=== PATIENT | female | born 1950 | race Hispanic/Latino ===

== ENCOUNTER → 2018-02-06 | Outpatient (CLI) | payer OTHER, MEDICARE ==
[~2018-02-06] MED LIST: ALPR1TAB2 PO; ASPI-555 PO; LAMO200T7 PO; LOSA50TA37 PO
[2018-02-06 11:58] LABS: CREATININE 0.9 mg/dL (0.5-1.5)
== END | disposition home or self-care (01) ==
LOC: LAB 10:00
PROVIDERS: ATTEND Psychiatry & Neurology Neurology
DX: R56.9 Unspecified convulsions (principal)
CPT/HCPCS: 36415; 82565; 84520

== ENCOUNTER → 2018-02-10 | Outpatient (CLI) | payer OTHER, MEDICARE ==
[~2018-02-10] MED LIST changes: +GADOBENATE DIMEGLUMINE 10 ML IV ONE
== END | disposition home or self-care (01) ==
LOC: RAH 09:47
PROVIDERS: ATTEND Psychiatry & Neurology Neurology
DX: R56.9 Unspecified convulsions (principal)
CPT/HCPCS: 70553; A9577

== ENCOUNTER 2018-09-17 18:30 | Emergency (ER) | payer OTHER, MEDICARE ==
[~2018-09-17 18:30] MED LIST changes: -GADOBENATE DIMEGLUMINE 10 ML IV ONE; +LOSA50TA25 PO; -LOSA50TA37 PO
[2018-09-17 18:53] LABS: BASOPHILS % (AUTO) 0.3 % (0.0-5.0); HEMATOCRIT 43.4 % (36-48); MEAN CORPUSCULAR HEMOGLOBIN 28.9 pg (27.0-33.0); MEAN CORPUSCULAR HGB CONC 33.3 g/dL (32.0-36.0); MONOCYTES % (AUTO) 2.7 % (3.0-13.0); NUCLEATED RED BLOOD CELLS 0.2 % (0.0-0.19); PLATELET COUNT (AUTO) 128 K/uL (130-400); RED BLOOD CELL COUNT(AUTO) 4.99 MIL/uL (4.00-5.50); RED CELL DISTRIBUTION WIDTH 14.2 % (11.0-15.5); WHITE BLOOD COUNT (AUTO) 4.3 K/uL (4.8-10.8)
[2018-09-17 19:06] LABS: CREATININE 0.9 mg/dL (0.5-1.5); POTASSIUM 3.6 mmol/L (3.5-5.1)
[2018-09-17 19:11] LABS: ALBUMIN 4.1 g/dL (3.5-5.0); BILIRUBIN,TOTAL 1.4 mg/dL (0.2-1.0); TOTAL PROTEIN, SERUM 8.3 g/dL (6.0-8.3)
[2018-09-17] MEDS ORDERED: SODIUM CHLORIDE 0.9% 1000ML 1,000 ML IV ONE (19:23)
[2018-09-17] MEDS ORDERED: ONDANSETRON HCL 4 MG/2 ML VIAL ONE (20:17)
[2018-09-17 20:38] LABS: APPEARANCE,URINE Clear (CLEAR); BILIRUBIN,URINE Negative (NEGATIVE); COLOR,URINE Dark Yellow (YELLOW); GLUCOSE, URINE (UA) Negative (NEGATIVE); KETONES,URINE Trace mg/dL (NEGATIVE); LEUKOCYTE ESTERASE ,URINE Small (NEGATIVE); NITRATE,URINE Negative (NEGATIVE); OCCULT BLOOD,URINE Negative (NEGATIVE); PROTEIN,URINE Trace (NEGATIVE)
[2018-09-17 20:50] LABS: BACTERIA,URINE Few /HPF (None Seen); RBC,URINE 0-1 /HPF (0-1)
[2018-09-17 20:52] LABS: MUCUS,URINE Few LPF (None Seen); SQUAMOUS EPITHELIAL CELL,UR Few /HPF (0-2)
[2018-09-17] MEDS ORDERED: CEFTRIAXONE SODIUM 1 GM ONE (22:03)
[2018-09-17] MEDS ORDERED: TRAMADOL HCL 50 MG TABLET ONE (23:36)
== END 2018-09-17 23:51 | disposition home or self-care (01) ==
LOC: EDH 18:30
DX: N30.00 Acute cystitis without hematuria (principal); E86.9 Volume depletion, unspecified; I10 Essential (primary) hypertension; Z88.6 Allergy status to analgesic agent; Z88.1 Allergy status to other antibiotic agents; Z90.710 Acquired absence of both cervix and uterus; Z90.49 Acquired absence of other specified parts of digestive tract; Z87.442 Personal history of urinary calculi
CPT/HCPCS: 36415; 80053; 81001; 83690; 85025; 87804 ×2; 96361; 96374; 96375; 99283; J0696; J2405; J7030

== ENCOUNTER 2018-10-24 22:35 | Emergency (ER) | payer OTHER, MEDICARE ==
[~2018-10-24 22:35] MED LIST changes: -LOSA50TA25 PO; +LOSA50TA64 PO
[2018-10-24] MEDS ORDERED: ONDANSETRON HCL 4 MG/2 ML VIAL ONE (23:09)
[2018-10-24] MEDS ORDERED: SODIUM CHLORIDE 0.9% 1000ML 1,000 ML IV ONE (23:09)
[2018-10-24 23:15] LABS: BASOPHILS % (AUTO) 0.6 % (0.0-5.0); EOSINOPHILS % (AUTO) 1.4 % (0.0-8.0); HEMATOCRIT 35.2 % (36-48); LYMPHOCYTES % (AUTO) 38.7 % (21.0-51.0); MEAN CORPUSCULAR HEMOGLOBIN 29.5 pg (27.0-33.0); MEAN CORPUSCULAR VOLUME 86.8 fL (79-99); MONOCYTES % (AUTO) 7.9 % (3.0-13.0); NEUTROPHILS % (AUTO) 51.4 % (40.0-77.0); PLATELET COUNT (AUTO) 194 K/uL (130-400); RED BLOOD CELL COUNT(AUTO) 4.06 MIL/uL (4.00-5.50); RED CELL DISTRIBUTION WIDTH 14.4 % (11.0-15.5); WHITE BLOOD COUNT (AUTO) 5.3 K/uL (4.8-10.8)
[2018-10-24 23:22] LABS: CREATININE 0.9 mg/dL (0.5-1.5); POTASSIUM 4.1 mmol/L (3.5-5.1)
[2018-10-24 23:27] LABS: INR 0.95 (0.85-1.15); PARTIAL THROMBOPLASTIN TIME 28.4 SEC (26.3-35.5)
[2018-10-24 23:28] LABS: ALBUMIN 3.9 g/dL (3.5-5.0); BILIRUBIN,TOTAL 0.7 mg/dL (0.2-1.0); TOTAL PROTEIN, SERUM 7.8 g/dL (6.0-8.3)
[2018-10-24 23:34] LABS: B-TYPE NATRIURETIC PEPTIDE 18 pg/mL (0-100)
== END 2018-10-25 00:41 | disposition home or self-care (01) ==
LOC: EDH 22:35
DX: E86.9 Volume depletion, unspecified (principal); F41.9 Anxiety disorder, unspecified; R53.81 Other malaise; R53.83 Other fatigue; I10 Essential (primary) hypertension; Z90.710 Acquired absence of both cervix and uterus; Z98.890 Other specified postprocedural states; Z88.8 Allergy status to other drugs, medicaments and biological substances
CPT/HCPCS: 36415; 71045; 80053; 83690; 83880; 84484; 85025; 85610; 85730; 93005; 96361; 96374; 99284; J2405; J7030

== ENCOUNTER → 2019-05-03 | Outpatient (CLI) | payer OTHER, MEDICARE | END | disposition home or self-care (01) | LOC: RAH 11:05 | PROVIDERS: ATTEND Psychiatry & Neurology Neurology | DX: I65.22 Occlusion and stenosis of left carotid artery (principal) | CPT/HCPCS: 93880 ==

== ENCOUNTER → 2019-05-18 | Outpatient (CLI) | payer OTHER, MEDICARE | END | disposition home or self-care (01) | LOC: RAH 13:54 | PROVIDERS: ATTEND Psychiatry & Neurology Neurology | DX: I67.82 Cerebral ischemia (principal); R90.82 White matter disease, unspecified | CPT/HCPCS: 70450 ==

== ENCOUNTER → 2020-03-30 | Outpatient (CLI) | payer OTHER, MEDICARE ==
[~2020-03-30] MED LIST changes: -ASPI-555 PO; +ASPI-556 PO; +LAMO200T10 PO; -LAMO200T7 PO
== END | disposition home or self-care (01) ==
LOC: RAH 12:52
PROVIDERS: ATTEND Psychiatry & Neurology Neurology
DX: G40.909 Epilepsy, unspecified, not intractable, without status epilepticus (principal); G31.9 Degenerative disease of nervous system, unspecified
CPT/HCPCS: 70450

== ENCOUNTER → 2020-12-13 | Outpatient (CLI) | payer OTHER, MEDICARE | END | disposition home or self-care (01) | LOC: RAH 09:24 | PROVIDERS: ATTEND Internal Medicine Gastroenterology | DX: R13.10 Dysphagia, unspecified (principal); K22.2 Esophageal obstruction | CPT/HCPCS: 74240 ==

== ENCOUNTER → 2020-12-21 | Outpatient (CLI) | payer OTHER, MEDICARE | END | disposition home or self-care (01) | LOC: RAH 08:23 | PROVIDERS: ATTEND Family Medicine | DX: R10.84 Generalized abdominal pain (principal); K76.0 Fatty (change of) liver, not elsewhere classified | CPT/HCPCS: 76700 ==

== ENCOUNTER → 2021-01-29 | Outpatient (CLI) | payer OTHER, MEDICARE | END | disposition home or self-care (01) | LOC: RAH 11:25 | PROVIDERS: ATTEND Internal Medicine Gastroenterology | DX: R14.0 Abdominal distension (gaseous) (principal); R10.10 Upper abdominal pain, unspecified | CPT/HCPCS: 78264; A9541 ==

== ENCOUNTER 2022-01-26 17:45 | Emergency (ER) | payer OTHER, MEDICARE ==
[~2022-01-26] VITALS: Ht 152.4 cm; Wt 59.0 kg
[2022-01-26] MEDS ORDERED: ACETAMINOPHEN 500 MG TABLET PO SCH (18:30)
[2022-01-26 18:33] LABS: BASOPHILS % (AUTO) 0.2 % (0.0-5.0); EOSINOPHILS % (AUTO) 0.9 % (0.0-8.0); HEMATOCRIT 35.4 % (36-48); LYMPHOCYTES % (AUTO) 18.4 % (21.0-51.0); MEAN CORPUSCULAR HEMOGLOBIN 29.3 pg (27.0-33.0); MEAN CORPUSCULAR HGB CONC 33.3 g/dL (32.0-36.0); MEAN CORPUSCULAR VOLUME 87.8 fL (79-99); MONOCYTES % (AUTO) 5.9 % (3.0-13.0); NEUTROPHILS % (AUTO) 74.3 % (40.0-77.0); PLATELET COUNT (AUTO) 153 K/uL (130-400); RED BLOOD CELL COUNT(AUTO) 4.03 MIL/uL (4.00-5.50); RED CELL DISTRIBUTION WIDTH 12.6 % (11.0-15.5); WHITE BLOOD COUNT (AUTO) 6.6 K/uL (4.8-10.8)
[2022-01-26 18:58] LABS: CREATININE 0.9 mg/dL (0.5-1.5); POTASSIUM 4.3 mmol/L (3.5-5.1)
[2022-01-26 19:03] LABS: ALBUMIN 4.1 g/dL (3.5-5.0); BILIRUBIN,TOTAL 0.9 mg/dL (0.2-1.0); TOTAL PROTEIN, SERUM 7.3 g/dL (6.0-8.3)
[2022-01-26 20:17] VITALS: BP 126/63
[2022-01-26] MEDS ORDERED: NAPR-1180 PO (20:31)
== END 2022-01-26 20:44 | disposition home or self-care (01) ==
LOC: EDH 17:45
DX: S63.502A Unspecified sprain of left wrist, initial encounter (principal); S16.1XXA Strain of muscle, fascia and tendon at neck level, initial encounter; S00.83XA Contusion of other part of head, initial encounter; S80.01XA Contusion of right knee, initial encounter; S00.03XA Contusion of scalp, initial encounter; S00.11XA Contusion of right eyelid and periocular area, initial encounter; I10 Essential (primary) hypertension; Z88.8 Allergy status to other drugs, medicaments and biological substances; Z79.899 Other long term (current) drug therapy; Z79.82 Long term (current) use of aspirin; Z90.89 Acquired absence of other organs; Z90.49 Acquired absence of other specified parts of digestive tract; Z98.890 Other specified postprocedural states; W01.0XXA Fall on same level from slipping, tripping and stumbling without subsequent striking against object, initial encounter; Y93.89 Activity, other specified; Y92.89 Other specified places as the place of occurrence of the external cause; Y99.8 Other external cause status
CPT/HCPCS: 36415; 70450; 70486; 72125; 73100; 73562; 80053; 84484; 85025; 93005

== ENCOUNTER 2022-04-18 12:23 | Emergency (ER) | payer OTHER, MEDICARE ==
[~2022-04-18] VITALS: Ht 152.4 cm; Wt 53.1 kg
[~2022-04-18 12:23] MED LIST changes: +NAPR-1180 PO
[2022-04-18 12:44] LABS: BASOPHILS % (AUTO) 0.2 % (0.0-5.0); HEMATOCRIT 36.5 % (36-48); LYMPHOCYTES % (AUTO) 23.3 % (21.0-51.0); MEAN CORPUSCULAR HGB CONC 34.2 g/dL (32.0-36.0); MEAN CORPUSCULAR VOLUME 87.7 fL (79-99); MONOCYTES % (AUTO) 5.6 % (3.0-13.0); NEUTROPHILS % (AUTO) 69.7 % (40.0-77.0); PLATELET COUNT (AUTO) 166 K/uL (130-400); RED BLOOD CELL COUNT(AUTO) 4.16 MIL/uL (4.00-5.50); RED CELL DISTRIBUTION WIDTH 12.9 % (11.0-15.5); WHITE BLOOD COUNT (AUTO) 5.9 K/uL (4.8-10.8)
[2022-04-18 12:53] LABS: CREATININE 0.9 mg/dL (0.5-1.5); POTASSIUM 3.7 mmol/L (3.5-5.1)
[2022-04-18 12:58] LABS: ALBUMIN 3.8 g/dL (3.5-5.0); TOTAL PROTEIN, SERUM 7.4 g/dL (6.0-8.3)
[2022-04-18] MEDS ORDERED: 0.9%NACL 1000ML 1,000 ML IV ONE (13:00)
[2022-04-18] MEDS ORDERED: MECLIZINE HCL 25 MG TABLET PO ONE (13:00)
[2022-04-18 14:15] LABS: APPEARANCE,URINE CLEAR (CLEAR); BILIRUBIN,URINE NEGATIVE (NEGATIVE); COLOR,URINE YELLOW (YELLOW); GLUCOSE, URINE (UA) NEGATIVE (NEGATIVE); KETONES,URINE NEGATIVE (NEGATIVE); LEUKOCYTE ESTERASE ,URINE SMALL (NEGATIVE); NITRATE,URINE NEGATIVE (NEGATIVE); OCCULT BLOOD,URINE TRACE-INTACT (NEGATIVE); PH,URINE 6.5 (5.0-8.0); PROTEIN,URINE NEGATIVE (NEGATIVE); UROBILINOGEN,URINE 0.2 mg/dL (0.2-1.0)
[2022-04-18 14:29] VITALS: BP 148/75
[2022-04-18 14:34] LABS: BACTERIA,URINE Rare /HPF (None Seen); RBC,URINE 0-1 /HPF (0-1); SQUAMOUS EPITHELIAL CELL,UR Few /HPF (0-2)
[2022-04-18] MEDS ORDERED: MECL-160 PO (15:03)
== END 2022-04-18 15:20 | disposition home or self-care (01) ==
LOC: EDH 12:23
DX: R42 Dizziness and giddiness (principal); R53.1 Weakness; R11.0 Nausea; Z20.822 Contact with and (suspected) exposure to COVID-19; F32.A Depression, unspecified; F41.9 Anxiety disorder, unspecified; I10 Essential (primary) hypertension; Z79.1 Long term (current) use of non-steroidal anti-inflammatories (NSAID); Z90.49 Acquired absence of other specified parts of digestive tract
CPT/HCPCS: 99284; 96360; 87635; 96361; 84484; 80053; 85025; 80188; 81001; 36415; 93005; 82542; C9803; J7030

== ENCOUNTER 2022-05-25 17:44 | Emergency (ER) | payer OTHER, MEDICARE ==
[~2022-05-25] VITALS: Ht 152.4 cm; Wt 55.8 kg
[~2022-05-25 17:44] MED LIST changes: +MECL-160 PO
[2022-05-25] MEDS ORDERED: 0.9%NACL 1000ML 1,000 ML IV ONE (18:00)
[2022-05-25] MEDS ORDERED: MORPHINE 2 MG SYG IVP ONE (18:00)
[2022-05-25] MEDS ORDERED: DIPH,PERTUSS(ACELL),TET VAC/PF 0.5 ML VIAL IM ONE (18:00)
[2022-05-25] MEDS ORDERED: AMOX/CLAV 875/125MG TAB PO ONE ×2 (18:00→19:23)
[2022-05-25] MEDS ORDERED: ONDANSETRON 4MG INJ IVP ONE (18:00)
[2022-05-25] MEDS ORDERED: KETOROLAC 30MG VIAL (30MG/ML) IV ONE (18:00)
[2022-05-25 18:34] LABS: BASOPHILS % (AUTO) 0.4 % (0.0-5.0); EOSINOPHILS % (AUTO) 1.1 % (0.0-8.0); HEMATOCRIT 33.5 % (36-48); LYMPHOCYTES % (AUTO) 24.6 % (21.0-51.0); MEAN CORPUSCULAR HEMOGLOBIN 30.2 pg (27.0-33.0); MEAN CORPUSCULAR VOLUME 88.6 fL (79-99); MONOCYTES % (AUTO) 6.7 % (3.0-13.0); NEUTROPHILS % (AUTO) 66.8 % (40.0-77.0); PLATELET COUNT (AUTO) 186 K/uL (130-400); RED BLOOD CELL COUNT(AUTO) 3.78 MIL/uL (4.00-5.50); RED CELL DISTRIBUTION WIDTH 12.7 % (11.0-15.5); WHITE BLOOD COUNT (AUTO) 5.4 K/uL (4.8-10.8)
[2022-05-25 18:44] LABS: PROTHROMBIN TIME 10.9 SEC (9.6-11.6)
[2022-05-25 18:47] LABS: POTASSIUM 4.1 mmol/L (3.5-5.1)
[2022-05-25 18:56] LABS: ALBUMIN 4.3 g/dL (3.5-5.0); TOTAL PROTEIN, SERUM 7.6 g/dL (6.0-8.3)
[2022-05-25 20:12] LABS: MAGNESIUM 1.9 mg/dL (1.80-2.40)
[2022-05-25 20:33] LABS: APPEARANCE,URINE CLEAR (CLEAR); BILIRUBIN,URINE NEGATIVE (NEGATIVE); COLOR,URINE YELLOW (YELLOW); GLUCOSE, URINE (UA) NEGATIVE (NEGATIVE); KETONES,URINE NEGATIVE (NEGATIVE); LEUKOCYTE ESTERASE ,URINE NEGATIVE (NEGATIVE); NITRATE,URINE NEGATIVE (NEGATIVE); OCCULT BLOOD,URINE NEGATIVE (NEGATIVE); PROTEIN,URINE NEGATIVE (NEGATIVE); UROBILINOGEN,URINE 0.2 mg/dL (0.2-1.0)
[2022-05-25 21:33] VITALS: BP 127/75
[2022-05-25] MEDS ORDERED: AMOX500C2 PO (21:48)
[2022-05-25] MEDS ORDERED: ACET-2079 PO (21:48)
[2022-05-25] MEDS ORDERED: NAPR500T6 PO (21:48)
== END 2022-05-25 22:06 | disposition home or self-care (01) ==
LOC: EDH 17:44
DX: S02.2XXA Fracture of nasal bones, initial encounter for closed fracture (principal); S16.1XXA Strain of muscle, fascia and tendon at neck level, initial encounter; E86.0 Dehydration; F41.9 Anxiety disorder, unspecified; F32.A Depression, unspecified; I10 Essential (primary) hypertension; Z88.8 Allergy status to other drugs, medicaments and biological substances; Z79.899 Other long term (current) drug therapy; Z79.82 Long term (current) use of aspirin; Z90.89 Acquired absence of other organs; Z90.49 Acquired absence of other specified parts of digestive tract; Z98.890 Other specified postprocedural states; W10.9XXA Fall (on) (from) unspecified stairs and steps, initial encounter; Y93.01 Activity, walking, marching and hiking; Y92.89 Other specified places as the place of occurrence of the external cause; Y99.8 Other external cause status
CPT/HCPCS: 99285; 70450; 96374; 96361; 71045; 96375; 83735; 84484; 80053; 85025; 85610; 83605; 81003; 36415; 90715; 72125; 70486; 90471; 93005; J7030; J2405; J1885

== ENCOUNTER 2023-11-19 12:59 | Emergency (ER) | payer OTHER, MEDICARE ==
[~2023-11-19] VITALS: Ht 152.4 cm; Wt 58.5 kg
[~2023-11-19 12:59] MED LIST changes: +ACET-2079 PO; +AMOX500C2 PO; -MECL-160 PO; +MECL-302 PO; +NAPR500T6 PO
[2023-11-19 13:28] VITALS: BP 131/75; PULSE 65; RESP 20
[2023-11-19 14:49] LABS: BASOPHILS # (AUTO) 0.01 K/uL (0.00-0.20); BASOPHILS % (AUTO) 0.2 % (0.0-5.0); EOSINOPHILS # (AUTO) 0.09 K/uL (0.00-0.70); EOSINOPHILS % (AUTO) 2.1 % (0.0-8.0); HEMATOCRIT 35.8 % (36-48); IMMATURE GRANULOCYTE ABSOLUTE 0.02 K/uL (0-1); LYMPHOCYTES # (AUTO) 1.4 K/uL (1.0-4.8); LYMPHOCYTES % (AUTO) 33.5 % (21.0-51.0); MEAN CORPUSCULAR HEMOGLOBIN 29.9 pg (27.0-33.0); MEAN CORPUSCULAR HGB CONC 33.8 g/dL (32.0-36.0); MEAN CORPUSCULAR VOLUME 88.4 fL (79-99); MONOCYTES # (AUTO) 0.3 K/uL (0.1-1.0); MONOCYTES % (AUTO) 6.4 % (3.0-13.0); NEUTROPHILS # (AUTO) 2.4 K/uL (1.8-7.7); NEUTROPHILS % (AUTO) 57.3 % (40.0-77.0); PLATELET COUNT (AUTO) 180 K/uL (130-400); RED BLOOD CELL COUNT(AUTO) 4.05 MIL/uL (4.00-5.50); RED CELL DISTRIBUTION WIDTH 12.9 % (11.0-15.5); WHITE BLOOD COUNT (AUTO) 4.2 K/uL (4.8-10.8)
[2023-11-19 15:03] LABS: CREATININE 0.8 mg/dL (0.5-1.5); POTASSIUM 4.2 mmol/L (3.5-5.1)
[2023-11-19] MEDS ORDERED: ONDANSETRON 4MG INJ IVP ONE (16:00)
[2023-11-19] MEDS ORDERED: KETOROLAC 30MG VIAL (30MG/ML) IVP ONE (16:00)
[2023-11-19] MEDS ORDERED: 0.9%NACL 1000ML 1,000 ML IV ONE (16:00)
== END 2023-11-19 17:34 | disposition home or self-care (01) ==
LOC: EDH 12:59
DX: R10.11 Right upper quadrant pain (principal); I10 Essential (primary) hypertension; E78.00 Pure hypercholesterolemia, unspecified; F41.9 Anxiety disorder, unspecified; Z79.82 Long term (current) use of aspirin; Z79.899 Other long term (current) drug therapy; Z90.49 Acquired absence of other specified parts of digestive tract; Z90.710 Acquired absence of both cervix and uterus; Z98.890 Other specified postprocedural states; Z88.8 Allergy status to other drugs, medicaments and biological substances
CPT/HCPCS: 36415; 74176; 80048; 83690; 85025

== ENCOUNTER 2024-10-10 17:52 | Emergency (ER) | payer MEDICARE, OTHER ==
[~2024-10-10] VITALS: Ht 157.5 cm; Wt 59.0 kg
[~2024-10-10 17:52] MED LIST changes: +NAPR-1506 PO; -NAPR500T6 PO
--- NOTE | 2024-10-10 19:52 | HMCIMG ---
CT CERVICAL SPINE W/O CONTRAST REASON: head injury COMPARISON: None TECHNIQUE: Images are obtained from skull base to the upper thoracic spine in the axial plane. Sagittal and coronal reconstruction images were then performed. FINDINGS: There are normal appearing vertebral bodies. Alignment is unremarkable and disc interspace heights are well preserved. There is no evidence of fracture or subluxation. Soft tissues appear normal as well. IMPRESSION: Normal noncontrast CT of the cervical spine. CT was performed with one or more following dose reduction techniques: automated exposure control, adjustment of the mA and kv according to patient's size, or use of a iterative reconstruction technique.
--- NOTE | 2024-10-10 19:53 | HMCIMG ---
Exam: NONCONTRAST CT BRAIN REASON: head injury. COMPARISON: None. TECHNIQUE: Images are obtained from vertex to the skull base. The exam was performed without IV contrast. FINDINGS: There is normal appearing brain parenchyma. There are no focal mass lesions. There is is no evidence of intracranial hemorrhage or acute stroke. Ventricles and sulci appear generous consistent with mild involutional change. Posterior fossa and brainstem structures are unremarkable. Paranasal sinuses and remaining extracranial soft tissues appear normal as well. IMPRESSION: 1. No acute intracranial finding. 2. Mild involutional changes. CT was performed with one or more following dose reduction techniques: automated exposure control, adjustment of the mA and kv according to patient's size, or use of a iterative reconstruction technique.
[2024-10-10 19:57] VITALS: BP 154/77; PULSE 64; RESP 16; TEMP 97.9; O2SAT 98
--- NOTE | 2024-10-10 19:58 | HMCIMG ---
CT PELVIS W/O CONTRAST REASON: head injury COMPARISON: None TECHNIQUE: Axial images are obtained from iliac crests through the perineum. Sagittal and coronal reconstruction images were then performed. FINDINGS: Bones of the pelvis appear unremarkable. There are no pelvic fractures. Bowel loops appear unremarkable as do pelvic soft tissues. Stranding soft tissues also appear normal. Sacrum and coccyx appear intact. IMPRESSION: 1. Normal CT pelvis.
--- NOTE | 2024-10-10 20:00 | HMCIMG ---
CT LUMBAR SPINE W/O CONTRAST REASON: head injury COMPARISON: None TECHNIQUE: Routine lumbar imaging protocol was performed from mid body T12 through the sacrum. Sagittal and coronal reconstruction images were then performed. FINDINGS: There is mild compression deformity of the superior endplate of the L5 vertebral body. This is unchanged compared to previous CT abdomen and pelvis 11/19/2023. Remaining vertebral bodies appear unremarkable. Disc interspaces are preserved. Alignment is normal. Axial images show widely patent spinal canal and thecal sac. There is no evidence of disc herniation or focal spinal stenosis. Sacrum and coccyx appear intact. Soft tissues appear unremarkable. IMPRESSION: 1. Mild compression deformity of the L5 vertebral body, unchanged compared to prior study 11/19/2023. 2. Otherwise unremarkable noncontrast CT lumbar spine.
--- NOTE | 2024-10-10 20:04 | HMCIMG ---
CHEST 1VW REASON: fall, injury COMPARISON: 05/25/2022 FINDINGS: Single view of the chest was obtained. Lungs are clear. Heart size is normal. There is no pulmonary vascular congestion. Mediastinum and bony thorax appear unremarkable. IMPRESSION: 1. Normal single view chest x-ray.
--- NOTE | 2024-10-10 20:31 | HMCIMG ---
CT CHEST W/O CONTRAST REASON: R flank/ribe pain s/p falllllll COMPARISON: 03/03/2009 TECHNIQUE: Multiple sequential axial images of the chest were obtained from the thoracic inlet through the upper pole of the kidneys without intravenous contrast administration. FINDINGS: Lungs are clear. There are no focal masses or infiltrates. There is no evidence of contusion or pleural effusion. Heart size is normal. There is no pulmonary vascular congestion. Hilar and mediastinal structures appear normal. Chest wall appears unremarkable. There are no visible fractures. Gallbladder is absent. Visualized upper abdominal structures are otherwise unremarkable. IMPRESSION: Negative unenhanced CT chest. CT was performed with one or more following dose reduction techniques: automated exposure control, adjustment of the mA and kv according to patient's size, or use of a iterative reconstruction technique.
[2024-10-10] MEDS: LIDOCAINE 4% ADH..PATCH TP ONE (20:36)
[2024-10-10] MEDS: HYDROcodone/APAP 5/325 1 TAB TABLET PO ONE (20:36)
[2024-10-10] MEDS: ketOROlac 15MG/ML VIAL (15MG/ML) IM ONE (20:36)
--- NOTE | 2024-10-10 20:44 | ERN ---
General Chief Complaint: Mechanical Fall Stated Complaint: MECHANICAL FALL Time Seen by MD: 19:15 History of Present Illness Initial Comments 74-year-old female history of seizure disorder, daily Xanax use, who presents for a fall. His reports mechanical fall. She fell to her right side. She hit her head. She reports right rib pain. She reports lower back/coccyx pain. She is ambulatory neurovascularly intact. No other injuries. No preceding symptoms. Allergies: Coded Allergies: promethazine (Unverified Allergy, Mild, 11/19/16) levetiracetam (Verified Allergy, Unknown, 11/19/16) lisinopril (Unverified Allergy, Unknown, 05/25/22) pregabalin (Verified Allergy, Unknown, 11/19/16) Home Meds Active Scripts Lidocaine (Lidocaine Pain Relief) 4 % Adh..patch, 1 EACH TP BID PRN for PAIN for 10 Days, #10 ADH.PATCH Prov:DENISA MELO DO 10/10/24 Acetaminophen with Codeine (Acetaminophen-Cod #3 Tablet) 300 Mg-30 Mg Tablet, 1 TAB PO Q6HPRN PRN for pain for 5 Days, #20 TAB 0 Refills Prov:DENISA MELO DO 10/10/24 Amoxicillin (Amoxicillin) 500 Mg Capsule, 500 MG PO TID for 10 Days, #30 CAP 0 Refills Prov:JOSUÉ NOE MD 05/25/22 Acetaminophen with Codeine (Acetaminophen-Cod #3 Tablet) 1 Each Tablet, 1 TAB PO Q4H PRN for PAIN LEVEL 7 TO 10, #15 TAB 0 Refills Prov:JOSUÉ NOE MD 05/25/22 Naproxen (Naproxen) 500 Mg Tablet.dr, 500 MG PO BIDPC PRN for PAIN LEVEL 4 TO 6, #30 TAB 0 Refills Prov:JOSUÉ NOE MD 05/25/22 Meclizine HCl (Meclizine HCl) 25 Mg Tablet, 25 MG PO TID PRN for DIZZINESS, #15 TAB Prov:DONIS GONZALEZ 04/18/22 Naproxen (Naprosyn) 500 Mg Tablet, 500 MG PO BIDPC, #60 TAB Prov:IRENE SANTOS 01/26/22 Reported Medications Alprazolam (Xanax) 1 Mg Tablet, 1 MG PO AD PRN for anxiety, TAB 2/28/17 Aspirin (Aspir 81) 81 Mg Tablet.dr, 81 MG PO AM, TAB 11/19/16 Losartan Potassium (Losartan Potassium) 50 Mg Tablet, 50 MG PO AM, TAB 11/19/16 Lamotrigine (Lamotrigine) 200 Mg Tablet, 200 MG PO AM, TAB 11/19/16 Past Medical History Past Medical History: Anxiety, Depression, Hypertension, Kidney Stone, Seizure Past Surgical History: Appendectomy, Hysterectomy, Cholecystectomy Family History Family History: Negative Social History Social History: Negative, Lives with family Female( History) History: Not Applicable ROS Dictation CONSTITUTIONAL: No chills, no fever, no weakness, no diaphoresis, no malaise. HEAD/FACE: No signs of trauma. EENT: No eye pain, no blurred vision, no tearing, no double vision, no ear pain, no ear discharge, no nose pain, no nasal congestion, no throat pain, no throat swelling, no mouth pain. RESPIRATORY: No cough, no orthopnea, no SOB, no stridor, no wheezing. CARDIOVASCULAR: No chest pain, no edema, no palpitations, no syncope. GASTROINTESTINAL/ABDOMINAL: No abdominal pain, no constipation, no diarrhea, no nausea, no vomiting. GENITOURINARY: No abnormal discharge, no dysuria, no frequent urination, no hematuria. No complaints of pain in the genitals. MUSCULOSKELETAL: Right head pain, right rib/flank pain INTEGUMENTARY: No change in color, no change in hair/nails, no dryness, no lesion, no lumps, no rash. NEUROLOGICAL/PSYCH: No anxiety, not depressed, no emotional problem, no headache, no numbness, no pre-existing deficit, no history of seizures, no tremors, no weakness. HEMATOLOGIC/LYMPHATIC: Not anemic, no history of blood clots, no apparent bleeding, no bruising, glands not swollen. All Systems Negative, Except as Noted. Physical Exam Physical Exam Dictation VITAL SIGNS: Reviewed. GENERAL APPEARANCE: Alert, oriented x3, no acute distress EYES: PERRL, pink conjunctivas, eyelid no trauma, anterior chamber clear. EARS: Pinnas intact and no signs of trauma or erythema. Ear canals clear and no discharge. TMs no erythema. NOSE: No discharge, no bleeding. OROPHARYNX: Mouth normal, teeth no caries, tongue pink. Pharynx clear, no erythema. Tonsils no exudates, no abscesses noted. Mucous membrane moist. NECK: Supple, non-tender, no thyromegaly, no masses, no JVD, no bruits. BREAST: Deferred. CHEST: No tenderness, no crepitus, no paradoxical movement, no retractions. LUNGS: Clear, well-ventilated, symmetric, no rales, no wheezing, no rhonchi, no stridor, good breath sounds bilaterally. Right chest wall pain. HEART: Regular rate, regular rhythm, no murmur, no gallops. VASCULAR: No peripheral edema. ABDOMEN: Soft, positive bowel sounds, nondistended, no guarding, nontender, no rebound, no masses no hepatomegaly, no splenomegaly, no Watson's sign, no h ernias. RECTAL: Deferred. GENITAL: Deferred. NEUROLOGICAL: Normal speech, gross motor function intact, gross sensory functi on intact. MUSCULOSKELETAL: Neck nontender, full range of motion, back nontender, full range of motion. Lower back coccyx tenderness EXTREMITIES: Nontender, full range of motion. SKIN: Color pink, dry, no turgor, no rash, no lacerations, no abrasions, no contusions. LYMPHATICS: Deferred. MDM CC: Right flank pain right lower back pain status post fall Historian: Patient Comorbidities: Advanced age, seizure disorder, gastritis, hypertension, dyslipidemia Limitations by social determinants of health: None Differential diagnosis: Rib fracture, musculoskeletal injury, fracture, other. Vital signs: Stable, remained stable in the ER. CT cervical spine per my independent interpretation shows no acute fractures or abnormalities. Chest x-ray per my independent interpretation shows no acute fractures or abnormalities. No cardiomegaly. CT head per my independent interpretation shows no acute bleed. There are some chronic changes. CT lumbar spine without contrast per my independent interpretation shows no acute fractures. So possibly a compression fracture L5, this is present on previous studies. CT pelvis without contrast per my independent interpretation shows no acute fractures. CT chest without contrast per my independent interpretation shows no rib fractures or acute abnormalities. Treatment in ER: Lidocaine patch, Corona tab p.o., IM Toradol Re-evaluation: Pain improved. No concerning findings on the patient's workup. No major trauma. Likely soft tissue injury. We will DC with pain control and recommend PCP follow up. REASON: R flank/ribe pain s/p falllllll ORDERING PHYSICIAN: DENISA MELO DO PROCEDURE: CHEST WO - CT CHEST W/O CONTRAST CT CHEST W/O CONTRAST REASON: R flank/ribe pain s/p falllllll COMPARISON: 03/03/2009 TECHNIQUE: Multiple sequential axial images of the chest were obtained from the thoracic inlet through the upper pole of the kidneys without intravenous contrast administration. FINDINGS: Lungs are clear. There are no focal masses or infiltrates. There is no evidence of contusion or pleural effusion. Heart size is normal. There is no pulmonary vascular congestion. Hilar and mediastinal structures appear normal. Chest wall appears unremarkable. There are no visible fractures. Gallbladder is absent. Visualized upper abdominal structures are otherwise unremarkable. IMPRESSION: Negative unenhanced CT chest. CT was performed with one or more following dose reduction techniques: automated exposure control, adjustment of the mA and kv according to patient's size, or use of a iterative reconstruction technique. REASON: head injury ORDERING PHYSICIAN: DENISA MELO DO PROCEDURE: PELVIS WO - CT PELVIS W/O CONTRAST CT PELVIS W/O CONTRAST REASON: head injury COMPARISON: None TECHNIQUE: Axial images are obtained from iliac crests through the perineum. Sagittal and coronal reconstruction images were then performed. FINDINGS: Bones of the pelvis appear unremarkable. There are no pelvic fractures. Bowel loops appear unremarkable as do pelvic soft tissues. Stranding soft tissues also appear normal. Sacrum and coccyx appear intact. IMPRESSION: 1. Normal CT pelvis. REASON: head injury ORDERING PHYSICIAN: DENISA MELO DO PROCEDURE: L SPIN WO - CT LUMBAR SPINE W/O CONTRAST CT LUMBAR SPINE W/O CONTRAST REASON: head injury COMPARISON: None TECHNIQUE: Routine lumbar imaging protocol was performed from mid body T12 through the sacrum. Sagittal and coronal reconstruction images were then performed. FINDINGS: There is mild compression deformity of the superior endplate of the L5 vertebral body. This is unchanged compared to previous CT abdomen and pelvis 11/19/2023. Remaining vertebral bodies appear unremarkable. Disc interspaces are preserved. Alignment is normal. Axial images show widely patent spinal canal and thecal sac. There is no evidence of disc herniation or focal spinal stenosis. Sacrum and coccyx appear intact. Soft tissues appear unremarkable. IMPRESSION: 1. Mild compression deformity of the L5 vertebral body, unchanged compared to prior study 11/19/2023. 2. Otherwise unremarkable noncontrast CT lumbar spine. REASON: head injury ORDERING PHYSICIAN: DENISA MELO DO PROCEDURE: HEAD WO - CT HEAD/BRAIN W/O CONTRAST Exam: NONCONTRAST CT BRAIN REASON: head injury. COMPARISON: None. TECHNIQUE: Images are obtained from vertex to the skull base. The exam was performed without IV contrast. FINDINGS: There is normal appearing brain parenchyma. There are no focal mass lesions. There is is no evidence of intracranial hemorrhage or acute stroke. Ventricles and sulci appear generous consistent with mild involutional change. Posterior fossa and brainstem structures are unremarkable. Paranasal sinuses and remaining extracranial soft tissues appear normal as well. IMPRESSION: 1. No acute intracranial finding. 2. Mild involutional changes. REASON: head injury ORDERING PHYSICIAN: DENISA MELO DO PROCEDURE: C SPIN WO - CT CERVICAL SPINE W/O CONTRAST CT CERVICAL SPINE W/O CONTRAST REASON: head injury COMPARISON: None TECHNIQUE: Images are obtained from skull base to the upper thoracic spine in the axial plane. Sagittal and coronal reconstruction images were then performed. FINDINGS: There are normal appearing vertebral bodies. Alignment is unremarkable and disc interspace heights are well preserved. There is no evidence of fracture or subluxation. Soft tissues appear normal as well. IMPRESSION: Normal noncontrast CT of the cervical spine. REASON: fall, injury ORDERING PHYSICIAN: DENISA MELO DO PROCEDURE: CXR1VW - CHEST 1VW CHEST 1VW REASON: fall, injury COMPARISON: 05/25/2022 FINDINGS: Single view of the chest was obtained. Lungs are clear. Heart size is normal. There is no pulmonary vascular congestion. Mediastinum and bony thorax appear unremarkable. IMPRESSION: 1. Normal single view chest x-ray. ED Course Orders Procedure Category Date Status Time Ct Head/Brain W/O CT 10/10/24 Resulted Contrast 19:16 Ct Cervical Spine W/O CT 10/10/24 Resulted Contrast 19:16 Ct Lumbar Spine W/O CT 10/10/24 Resulted Contrast 19:16 Ct Pelvis W/O Contrast CT 10/10/24 Resulted 19:16 Chest 1vw RAD 10/10/24 Resulted 19:16 Ct Chest W/O Contrast CT 10/10/24 Resulted 20:03 Ketorolac PHA 10/10/24 Complete Tromethamine 15mg/Ml 20:30 Hydrocodone/Apap PHA 10/10/24 Complete 5/325 (Corona 5/325mg) 20:30 Lidocaine (Lidocaine PHA 10/10/24 Complete Patch 4%) 20:30 Current Medications Medications (Trade) Dose Ordered Sig/Blas Route PRN Reason Start Time Stop Time Status Last Admin Dose Admin Acetaminophen/ Hydrocodone Bitart (NORco 5/325MG) 1 tab ONCE ONCE PO 10/10/24 20:30 10/10/24 20:31 DC 10/10/24 20:36 Ketorolac Tromethamine (toRADol) 15 mg ONCE ONCE IM 10/10/24 20:30 10/10/24 20:31 DC 10/10/24 20:36 Lidocaine (Lidocaine Patch 4%) 1 each ONCE ONCE TP 10/10/24 20:30 10/10/24 20:31 DC 10/10/24 20:36 Vital Signs Date Time Temp Pulse Resp B/P (MAP) Pulse Ox O2 Delivery O2 Flow Rate FiO2 10/10/24 19:57 97.9 64 16 154/77 98 Room Air* 0 21 10/10/24 18:20 98.1 69 16 141/76 97 Room Air 0 DX & DISP Disposition: Discharge Departure Impression: Primary Impression: Fall at home Additional Impressions: Rib sprain, Head injury Condition: Stable Scripts Lidocaine (Lidocaine Pain Relief) 4 % Adh..patch 1 EACH TP BID PRN for PAIN for 10 Days, #10 ADH.PATCH Prov: DENISA MELO DO 10/10/24 Acetaminophen with Codeine (Acetaminophen-Cod #3 Tablet) 300 Mg-30 Mg Tablet 1 TAB PO Q6HPRN PRN for pain for 5 Days, #20 TAB 0 Refills Prov: DENISA MELO DO 10/10/24 Additional Instructions: There are no dangerous findings on your workup here today. The CT scan of your head, cervical spine, lumbar spine coccyx, and chest did not show any fractures. You likely have soft tissue/musculoskeletal injury. I have prescribed Tylenol with codeine to use as needed for pain. I also recommend using lidocaine patches or Voltaren gel. Please return to the emergency department if you have any concerns. Referrals: OVIDIO ALICIA MD (PCP) DENISA MELO DO Oct 10, 2024 20:44
[2024-10-10] MEDS ORDERED: LIDO1ADH71 TP (21:00)
[2024-10-10] MEDS ORDERED: ACET-2079 PO (21:00)
== END 2024-10-10 21:19 | disposition home or self-care (01) ==
LOC: EDH 17:52
DX: S23.41XA Sprain of ribs, initial encounter (principal); S09.90XA Unspecified injury of head, initial encounter; F32.A Depression, unspecified; F41.9 Anxiety disorder, unspecified; I10 Essential (primary) hypertension; Z88.8 Allergy status to other drugs, medicaments and biological substances; Z90.49 Acquired absence of other specified parts of digestive tract; Z90.710 Acquired absence of both cervix and uterus; W18.39XA Other fall on same level, initial encounter; Y93.89 Activity, other specified; Y92.099 Unspecified place in other non-institutional residence as the place of occurrence of the external cause
CPT/HCPCS: 99285; 70450; 71045; 72125; 71250; 72131; 72192; 96372; J1885